=== PATIENT | male | born 1985 | race African-American/Black ===

== ENCOUNTER 2016-03-16 13:28 | Emergency (ER) | payer SELFPAY ==
[~2016-03-16] VITALS: Ht 198.1 cm; Wt 102.9 kg
[~2016-03-16 13:28] MED LIST: DOXY100C PO
[2016-03-16 13:35] VITALS: BP 135/89; PULSE 67; RESP 20; TEMP 98.8; O2SAT 99
--- NOTE | 2016-03-16 14:00 | RADHPO ---
EXAM DATE/TIME: 03/16/2016 13:50 [place] COMPARISON: No previous studies available for comparison. INDICATIONS : Right hand pain for three days. Patient states he was punching a punching bag. Pain at third MCPJ. MEDICAL HISTORY : None. SURGICAL HISTORY : None. ENCOUNTER: Initial ACUITY: 3 days PAIN SCORE: 6/10 LOCATION: Right hand. FINDINGS: Two view examination of the right hand demonstrates no soft tissue swelling, dislocation, or fracture . The joint spaces are maintained. Bony mineralization is normal. CONCLUSION: Unremarkable limited examination of the right hand. Marvel Egan MD on March 16, 2016 at 13:58 Board Certified Radiologist. This report was verified electronically.
--- NOTE | 2016-03-16 14:04 | PD ---
HPI Chief Complaint: Musculoskeletal Complaint Time Seen by Provider: 13:53 Travel History International Travel<30 days: No Contact w/Intl Traveler<30days: No Traveled to known affect area: No History of Present Illness HPI 30 year-old male presents to the emergency room for evaluation of right third metacarpal pain for the past 2 days. Patient states it started after punching a hard punching bag. States he was using wraps and gloves. Patient reports pain only occurs when he applies pressure or punches. There is no pain at rest or with palpation. Denies paresthesias, edema, or ecchymosis. He has been taking ibuprofen and applying ice without relief in symptoms. PFSH Past Medical History Asthma: Yes ( A CHILD) Diminished Hearing: No Respiratory: Yes (asthma) Influenza Vaccination: No Past Surgical History Surgical History: No Previous Surgery Social History Alcohol Use: Yes (SOCIAL) Tobacco Use: No Substance Use: Yes (MARIJUANA) Allergies-Medications (Allergen,Severity, Reaction): Coded Allergies: No Known Allergies (Unverified , 03/16/16) Reported Meds & Prescriptions Reported Meds & Active Scripts Active No Active Prescriptions or Reported Medications Review of Systems Except as stated in HPI: all other systems reviewed are Neg Physical Exam Narrative GENERAL: Well-nourished, well-developed male in no acute distress. Afebrile. Ambulatory. SKIN: Warm and dry. No erythema or ecchymosis. HEAD: Normocephalic. EYES: No scleral icterus. No injection or drainage. NECK: Supple, trachea midline. No JVD or lymphadenopathy. EXTREMITY: Right hand essentially nontender to palpation. Full range of motion in all joints. No joint swelling/injury. Less than 2 second capillary refill distally. Distal sensation intact. Data Data Last Documented VS Vital Signs Date Time Temp Pulse Resp B/P Pulse Ox O2 Delivery O2 Flow Rate FiO2 03/16/16 13:35 98.8 67 20 135/89 99 Orders Hand, Limited (2vws) (03/16/16 ) [facility] Medical Decision Making Medical Screen Exam Complete: Yes Emergency Medical Condition: Yes Medical Record Reviewed: Yes Differential Diagnosis Fracture versus dislocation versus contusion Narrative Course 30-year-old male presents to the emergency room for evaluation of right third metacarpal pain after punching a punching bag 2 days ago. Patient reports pain is worsened with any pressure or punching. Physical exam is reassuring. Right hand essentially nontender to palpation. Full range of motion in all joints. No joint swelling/injury. Less than 2 second capillary refill distally. Distal sensation intact. X-ray is negative. Likely contusion. Patient discharged with orthopedic instructions and told to follow up with a primary care physician or return to the emergency room for worsening symptoms. He understands and agrees to plan. Diagnosis Primary Impression: Contusion of right hand Qualified Code: S60.221A - Contusion of right hand, initial encounter Referrals: Primary Care Physician Patient Instructions: Contusion in Adults (ED), General Instructions Additional Instructions: Rest and drink plenty of fluids. Take ibuprofen with food as directed, as needed for pain. Apply ice to the affected area for 20 minutes at a time, as needed for pain and swelling. Follow-up with a primary care physician. Return to the emergency room for worsening symptoms. Med/Other Pt SpecificInfo: Prescription(s) given Scripts No Active Prescriptions or Reported Meds Disposition: 01 DISCHARGE HOME Condition: Stable Alice Blood Mar 16, 2016 14:04
== END 2016-03-16 14:18 | disposition home or self-care (01) ==
LOC: PHEFT 13:28
DX: S60.221A Contusion of right hand, initial encounter (principal); W21.89XA Striking against or struck by other sports equipment, initial encounter; Y93.59 Activity, other involving other sports and athletics played individually; Y92.9 Unspecified place or not applicable; Y99.8 Other external cause status
CPT/HCPCS: 73120; 99283

== ENCOUNTER 2016-03-21 02:26 | Emergency (ER) | payer SELFPAY ==
[~2016-03-21] VITALS: Ht 198.1 cm; Wt 103.4 kg
[2016-03-21 02:29] VITALS: BP 131/90; PULSE 89; RESP 20; TEMP 98.9; O2SAT 99
--- NOTE | 2016-03-21 03:09 | PD ---
HPI Chief Complaint: Skin Problem Time Seen by Provider: 03:05 Travel History International Travel<30 days: No Contact w/Intl Traveler<30days: No Traveled to known affect area: No History of Present Illness HPI 30-year-old male presents to the emergency department with a black dot noted on his left fifth toe. Patient's concerned this is cancer. Patient states it's been present for approximately one week. Patient denies recalling any injury. Patient denies any pain. Patient reports he is otherwise in good health. PFSH Past Medical History Narrative Medical Asthma no tobacco use nursing notes reviewed Asthma: Yes ( A CHILD) Diminished Hearing: No Respiratory: Yes (asthma) Tetanus Vaccination: < 5 Years Influenza Vaccination: No Past Surgical History Surgical History: No Previous Surgery Social History Alcohol Use: Yes (SOCIAL) Tobacco Use: No Substance Use: Yes (MARIJUANA) Allergies-Medications (Allergen,Severity, Reaction): Coded Allergies: No Known Allergies (Unverified , 03/16/16) Reported Meds & Prescriptions Reported Meds & Active Scripts Active No Active Prescriptions or Reported Medications Review of Systems General / Constitutional: No: Fever Musculoskeletal: No: Myalgias, Arthralgias Skin: No Rash Hematologic/Lymphatic: No: Lymph Node Enlargement Physical Exam Narrative Well-developed well-nourished male in no acute distress no respiratory distress Attention extremities left fifth toe small subcentimeter area vesicle with oxidized blood nontender digit is otherwise intact exam with brisk capillary refill normal range of motion and nontender without deformity Data Data Last Documented VS Vital Signs Date Time Temp Pulse Resp B/P Pulse Ox O2 Delivery O2 Flow Rate FiO2 03/21/16 02:29 98.9 89 20 131/90 99 MDM Medical Decision Making Medical Screen Exam Complete: Yes Emergency Medical Condition: Yes Medical Record Reviewed: Yes Differential Diagnosis Contusion blood blister eschar unlikely melanoma or cancer Narrative Course Patient is stable for outpatient management and follow-up with his primary care provider as needed should very remain for longer than an additional week should follow-up with dermatology patient is aware of recommendations and stable for outpatient management. Diagnosis Primary Impression: Blood blister Referrals: Primary Care Physician as needed Patient Instructions: General Instructions Additional Instructions: Keep site moisturized with lotion Follow-up with primary care provider Return to the emergency department for any concerns Follow-up with flex[employer] operator as needed Scripts No Active Prescriptions or Reported Meds Disposition: DISCHARGE HOME Condition: Stable Janeth Ballard MD Mar 21, 2016 03:09
== END 2016-03-21 03:18 | disposition home or self-care (01) ==
LOC: PHED 02:26
DX: S90.425A Blister (nonthermal), left lesser toe(s), initial encounter (principal); X58.XXXA Exposure to other specified factors, initial encounter; Y93.9 Activity, unspecified; Y92.9 Unspecified place or not applicable
CPT/HCPCS: 99283

== ENCOUNTER 2016-08-06 16:59 | Emergency (ER) | payer SELFPAY ==
[~2016-08-06] VITALS: Ht 198.1 cm; Wt 99.5 kg
[2016-08-06 17:03] VITALS: BP 128/79; PULSE 76; RESP 16; TEMP 99.4; O2SAT 99
--- NOTE | 2016-08-06 17:18 | PD ---
HPI Chief Complaint: Complaint Time Seen by Provider: 17:13 Travel History International Travel<30 days: No Contact w/Intl Traveler<30days: No Traveled to known affect area: No History of Present Illness HPI 31-year-old male presents to the emergency room requesting treatment for "the clap." Patient states symptoms of dysuria and white penile discharge started today. He had unprotected sex with one female yesterday morning. Denies urgency, frequency, flank pain, fever, chills, nausea, vomiting, testicular pain , and penile pain. Patient denies chronic medical conditions or daily medications. History Social History Alcohol Use: Yes (SOCIAL) Tobacco Use: No Allergies-Medications (Allergen,Severity, Reaction): Coded Allergies: No Known Allergies (Unverified , 08/06/16) Reported Meds & Prescriptions Reported Meds & Active Scripts Active No Active Prescriptions or Reported Medications Review of Systems Except as stated in HPI: all other systems reviewed are Neg Physical Exam Narrative GENERAL: Well-nourished, well-developed male in no acute distress. Afebrile. Ambulatory. SKIN: Focused skin assessment warm/dry. HEAD: Normocephalic. EYES: No scleral icterus. No injection or drainage. NECK: Supple, trachea midline. No JVD or lymphadenopathy. CARDIOVASCULAR: Regular rate and rhythm without murmurs, gallops, or rubs. RESPIRATORY: Breath sounds equal bilaterally. No accessory muscle use. Data Data Last Documented VS Vital Signs Date Time Temp Pulse Resp B/P Pulse Ox O2 Delivery O2 Flow Rate FiO2 08/06/16 17:03 99.4 76 16 128/79 99 MDM Medical Screen Exam Complete: Yes Emergency Medical Condition: No Differential Diagnosis STD Narrative Course 31-year-old male presents to the emergency room requesting treatment for possible STD. Patient had unprotected sex with one female yesterday morning. He developed dysuria with associated white discharge today. Denies significant signs or symptoms of infection. Patient was informed that the emergency room only tests for gonorrhea and chlamydia and that he should follow up with the health Department for further testing. No urgent or emergent medical conditions at this time. A medical screening exam was performed: At the time of evaluation the presenting medical condition was determined not to be of an emergent nature. The patient was given the option of receiving additional care, but declined. Patient was given options for additional community resources from which to obtain care. The Patient Has Been advised to seek medical attention for their presenting complaint. The patient has been advised to return to the ER at any time if an emergent condition develops. Primary Impression: Encounter for medical screening examination Scripts No Active Prescriptions or Reported Meds Disposition: 01 DISCHARGE HOME Condition: Stable Alice Blood Aug 06, 2016 17:17
== END 2016-08-06 17:16 | disposition left against medical advice (07) ==
LOC: PHEFT 16:59
DX: R30.0 Dysuria (principal)
CPT/HCPCS: 99281

== ENCOUNTER 2016-08-10 19:05 | Emergency (ER) | payer SELFPAY ==
[~2016-08-10] VITALS: Ht 198.1 cm; Wt 100.4 kg
[2016-08-10 19:08] VITALS: BP 141/78; PULSE 81; RESP 18; TEMP 98.2; O2SAT 97
--- NOTE | 2016-08-10 19:41 | PD ---
HPI Chief Complaint: Complaint Time Seen by Provider: 19:34 Travel History International Travel<30 days: No Contact w/Intl Traveler<30days: No Traveled to known affect area: No History of Present Illness HPI 31-year-old male presents to the emergency department complaining of 3 days of penile discharge. Patient noted streaks of blood today. Patient decided to be evaluated. Patient has had STD in the past and was treated health Department. Patient's been seen here before for STD. Patient denies fever chills nausea vomiting. Pubic pressure does note some burning with urination. No testicular pain testicular swelling or scrotal pain or edema. Patient is otherwise good health remote history of asthma. Patient denies diabetes. Patient admits to being sexually active without condom use. Yesterday took a dose of left over antibiotic from last visit for same complaint. PFSH Past Medical History Narrative Medical Asthma, STD; no surgeries; no tobacco use rare alcohol use no substance use; nursing notes reviewed Medical History: Denies Significant Hx Asthma: Yes ( A CHILD) Diminished Hearing: No Respiratory: Yes (asthma as child) Tetanus Vaccination: < 5 Years Influenza Vaccination: No Past Surgical History Surgical History: No Previous Surgery Social History Alcohol Use: Yes (SOCIAL) Tobacco Use: No Substance Use: No Allergies-Medications (Allergen,Severity, Reaction): Coded Allergies: No Known Allergies (Unverified , 08/10/16) Reported Meds & Prescriptions Reported Meds & Active Scripts Active No Active Prescriptions or Reported Medications Review of Systems Except as stated in HPI: all other systems reviewed are Neg General / Constitutional: No: Fever, Chills HENT: No: Congestion Cardiovascular: No: Chest Pain or Discomfort Respiratory: No: Shortness of Breath Genitourinary: Positive: Dysuria Musculoskeletal: No: Pain Skin: No Rash Neurologic: No: Weakness Endocrine: No: Polyuria Hematologic/Lymphatic: No: Lymph Node Enlargement Physical Exam Narrative GENERAL: Well-developed well-nourished male in no acute distress no respiratory distress. SKIN: Warm and dry. HEAD: Normocephalic. EYES: No scleral icterus. No injection or drainage. NECK: Supple, trachea midline. No JVD or lymphadenopathy. CARDIOVASCULAR: Regular rate and rhythm without murmurs, gallops, or rubs. RESPIRATORY: Breath sounds equal bilaterally. No accessory muscle use. GASTROINTESTINAL: Abdomen soft, non-tender, nondistended. : Circumcised male , bilaterally descended testicles, no edema or mass or tenderness to palpation. Positive cremasteric reflex noted. MUSCULOSKELETAL: No cyanosis, or edema. BACK: Nontender without obvious deformity. No CVA tenderness. Data Data Last Documented VS Vital Signs Date Time Temp Pulse Resp B/P Pulse Ox O2 Delivery O2 Flow Rate FiO2 08/10/16 19:08 98.2 81 18 141/78 97 Orders Gc And Chlamydia Pcr (08/10/16 19:35) Urinalysis - C+S If Indicated (08/10/16 19:35) Ceftriaxone Inj (Rocephin Inj) (08/10/16 19:45) Lidocaine 1% Inj (50 Ml) (Xylocaine 1% I (08/10/16 19:45) Azithromycin (Zithromax) (08/10/16 19:45) Urine Culture (08/10/16 20:51) Labs Laboratory Tests Test 08/10/16 20:51 Urine Color YELLOW Urine Turbidity SLIGHT Urine pH 6.0 Urine Specific [place] 1.013 Urine Protein NEG mg/dL Urine Glucose (UA) NEG mg/dL Urine Ketones NEG mg/dL Urine Occult Blood TRACE Urine Nitrite NEG Urine Bilirubin NEG Urine Leukocyte Esterase TRACE Urine RBC 0-3 /hpf Urine WBC 9-14 /hpf Urine Squamous Epithelial 0-5 /hpf Cells Urine Hyaline Casts 0-2 /lpf Urine Mucus FEW /lpf Microscopic Urinalysis Comment CULTURE INDICATED MDM Medical Decision Making Medical Screen Exam Complete: Yes Emergency Medical Condition: Yes Medical Record Reviewed: Yes Interpretation(s) UA: blood, no rbc's; positive wbc's, no bacteria; cx indicated Differential Diagnosis Urethritis-nonspecific, UTI, epididymitis, STD Narrative Course Patient presents with penile discharge after unprotected sexual intercourse exam and history consistent with urethritis patient administered Rocephin injection along with 1 g of azithromycin. Patient is encouraged to follow-up with health Department. She does remain sexually inactive until laboratory results are available. Patient encouraged to use condom use with subsequent sexual activity. Urinalysis positive for blood without red blood cells and positive for white blood cells and bacteria cultures indicated. Patient has been treated with Rocephin and azithromycin is stable for outpatient management. Diagnosis Primary Impression: Nonspecific urethritis Referrals: Primary Care Physician as needed [facility] Dept. call for appointment Patient Instructions: General Instructions Additional Instructions: Follow-up with [facility] Remain sexually inactive until all lab results available Use condom with sexual activity Return to the emergency department for any concerns Scripts No Active Prescriptions or Reported Meds Disposition: 01 DISCHARGE HOME Condition: Janeth Mei MD Aug 10, 2016 19:41
[2016-08-10] MEDS ORDERED: cefTRIAXone 250 MG VIAL IM ONE (19:45)
[2016-08-10] MEDS ORDERED: AZITHROMYCIN 250 MG TAB PO ONE (19:45)
[2016-08-10] MEDS ORDERED: LIDOCAINE HCL 1% 50 ML VIAL IM ONE (19:45)
[2016-08-10 21:03] LABS: BLOOD, URINE TRACE (NEG); GLUCOSE,URINE NEG (NEG); KETONE, URINE NEG (NEG); NITRITE,URINE NEG (NEG)
[2016-08-10 21:10] LABS: URINE COLOR YELLOW (YELLW/STRAW)
[2016-08-10 21:11] LABS: MUCUS URINE FEW /lpf (OCC)
[2016-08-10 21:12] LABS: RBC, URINE 0-3 /hpf (0-3); SQUAMOUS EPITHELIAL CELL URINE 0-5 /hpf (0-5)
[2016-08-10 21:13] LABS: COMMENT (UR) CULTURE INDICATED; CULTURE IF INDICATED CULTURE INDICATED; HYALINE CAST, URINE 0-2 /lpf (RARE)
[2016-08-11 01:43] LABS: CHLAMYDIA PCR NOT DETECTED (NOT DETECT); NEISSERIA PCR NOT DETECTED (NOT DETECT)
== END 2016-08-10 21:34 | disposition home or self-care (01) ==
LOC: PHED 19:05
DX: N34.2 Other urethritis (principal)
CPT/HCPCS: 81001; 87086; 87491; 87591; 96372; 99284; J0696

== ENCOUNTER 2016-10-21 03:45 | Emergency (ER) | payer SELFPAY ==
[~2016-10-21] VITALS: Ht 198.1 cm; Wt 101.8 kg
[2016-10-21 03:52] VITALS: BP 140/65; PULSE 70; RESP 16; TEMP 98.5; O2SAT 99
[2016-10-22] MEDS ORDERED: VITA150T PO (00:01)
[2016-10-22] MEDS ORDERED: VITA500T83 PO (00:01)
[2016-10-22] MEDS ORDERED: VITA100036 PO (00:01)
== END 2016-10-21 04:01 | disposition left against medical advice (07) ==
LOC: PHED 03:45
DX: Z03.89 Encounter for observation for other suspected diseases and conditions ruled out (principal)
CPT/HCPCS: 99281

== ENCOUNTER 2016-10-21 23:34 | Emergency (ER) | payer SELFPAY ==
[~2016-10-21] VITALS: Ht 198.1 cm; Wt 103.0 kg
[2016-10-21 23:41] VITALS: BP 142/63; PULSE 66; RESP 14; TEMP 97.9; O2SAT 98
[2016-10-22] MEDS ORDERED: VITA500T83 PO (00:01)
[2016-10-22] MEDS ORDERED: VITA100036 PO (00:01)
[2016-10-22] MEDS ORDERED: VITA150T PO (00:01)
--- NOTE | 2016-10-22 01:32 | PD ---
HPI Chief Complaint: Complaint Time Seen by Provider: 01:25 Travel History International Travel<30 days: No Contact w/Intl Traveler<30days: No Traveled to known affect area: No History of Present Illness HPI The patient is a 31-year-old male that noticed a yellow/white discharge from his penis for the past 24 hours. He also noticed burning on urination. The patient is sexually active without protection. He had the same problem 4-6 weeks ago and has been sexually active without protection many times since. He denies any joint pain, skin rash, fever, testicular pain. PFSH Past Medical History Asthma: Yes ( A CHILD) Diminished Hearing: No Respiratory: Yes (asthma as child) Immunizations Current: Yes Influenza Vaccination: No Past Surgical History Surgical History: No Previous Surgery Social History Alcohol Use: No Tobacco Use: No (QUIT 2015) Substance Use: No Allergies-Medications (Allergen,Severity, Reaction): Coded Allergies: No Known Allergies (Unverified , 08/10/16) Reported Meds & Prescriptions Reported Meds & Active Scripts Active Reported Super B Complex (Vitamin B Complex Vit C No.4) 150 Mg Tablet 1 Tab PO DAILY Vitamin D3 (Cholecalciferol) 1,000 Unit Cap 1,000 Units PO DAILY Vitamin C ER (Ascorbic Acid) 500 Mg Evgeny 500 Mg PO DAILY Review of Systems Except as stated in HPI: all other systems reviewed are Neg Physical Exam Narrative GENERAL: Well-nourished, well-developed patient in no apparent distress except for his penile discharge. His vital signs are normal. SKIN: Focused skin assessment warm/dry. No skin rashes noted. HEAD: Normocephalic. EYES: No scleral icterus. No injection or drainage. NECK: Supple, trachea midline. No JVD or lymphadenopathy. There is no meningismus present. CARDIOVASCULAR: Regular rate and rhythm without murmurs, gallops, or rubs. RESPIRATORY: Breath sounds equal bilaterally. No accessory muscle use. GASTROINTESTINAL: Abdomen soft, non-tender, nondistended. MUSCULOSKELETAL: No cyanosis, or edema. No joint pain or swelling is noted. BACK: Nontender without obvious deformity. No CVA tenderness. GENITOURINARY: Circumcised. Testes descended bilaterally without evidence of rotation. No lesions or erythema. There is a copious, off-white urethral discharge. Data Data Last Documented VS Vital Signs Date Time Temp Pulse Resp B/P (MAP) Pulse Ox O2 Delivery O2 Flow Rate FiO2 10/21/16 23:41 97.9 66 14 142/63 (89) 98 Orders Orders Azithromycin Powd Pack (Zithromax Powd P (10/22/16 01:45) Ceftriaxone Inj (Rocephin Inj) (10/22/16 01:45) Sodium Chloride 0.9% Flush (Ns Flush) (10/22/16 01:45) Lidocaine 1% Inj (50 Ml) (Xylocaine 1% I (10/22/16 01:45) Azithromycin (Zithromax) (10/22/16 02:00) MDM Medical Decision Making Medical Screen Exam Complete: Yes Emergency Medical Condition: Yes Medical Record Reviewed: Yes Differential Diagnosis Urinary tract infection, gonorrhea, nonspecific urethritis Narrative Course The patient has an STD likely gonorrhea versus nonspecific urethritis. He will be treated with Rocephin and Zithromax. He will get 1 g orally of Zithromax. The patient could not take the powder but will be given Zithromax tablets. Diagnosis Primary Impression: STD (male) Additional Impression: Nonspecific urethritis Additional Instructions: Use protection when you have sex. If you have sex with an infected person you' ll get this disease again. This is a sexually transmitted disease. Disposition: 01 DISCHARGE HOME Condition: Stable Ace Reyes MD Oct 22, 2016 01:32
[2016-10-22] MEDS ORDERED: AZITHROMYCIN PWD FOR SUSP 1 GM PACKET PO ONE (01:45)
[2016-10-22] MEDS ORDERED: SODIUM CHLORIDE 0.9% FLUSH 10 ML FLUSH IVF PRN (01:45)
[2016-10-22] MEDS ORDERED: LIDOCAINE HCL 1% 50 ML VIAL XX ONE (01:45)
[2016-10-22] MEDS ORDERED: AZITHROMYCIN 600 MG TAB PO ONE (02:00)
[2016-10-22 02:05] VITALS: BP 124/76; PULSE 57; RESP 14; O2SAT 100
== END 2016-10-22 02:29 | disposition home or self-care (01) ==
LOC: PHED 23:34
DX: N34.1 Nonspecific urethritis (principal)
CPT/HCPCS: 96372; 99284; J0696

== ENCOUNTER 2016-12-20 05:49 | Emergency (ER) | payer SELFPAY ==
[~2016-12-20] VITALS: Ht 198.1 cm; Wt 101.7 kg
[~2016-12-20 05:49] MED LIST changes: -DOXY100C PO; +VITA100036 PO; +VITA150T PO; +VITA500T83 PO
[2016-12-20 05:53] VITALS: BP 141/79; PULSE 62; RESP 16; TEMP 97.2; O2SAT 99
--- NOTE | 2016-12-20 07:22 | PD ---
HPI Chief Complaint: Complaint Time Seen by Provider: 07:14 Travel History International Travel<30 days: No Contact w/Intl Traveler<30days: No Traveled to known affect area: No History of Present Illness HPI The patient is a 31-year-old [place] male who presents to the emergency department for penile discharge of one days duration. The patient is sexually active with women, has no known exposures. The patient does have a history of similar symptoms in the past secondary to chlamydia. Patient states the penile discharges yellow white, slight burning with urination, but denies any swelling of the penile shaft or scrotum. He denies any associated fever, chills, sweats , nausea, vomiting, abdominal pain, myalgias, or arthralgias. Symptoms are mild to moderate, possibly exacerbated by sexual activity, and alleviated in the past with antibiotics. PFSH Past Medical History Asthma: Yes ( A CHILD) Diminished Hearing: No Respiratory: Yes (asthma as child) Immunizations Current: Yes Tetanus Vaccination: < 5 Years Influenza Vaccination: No Social History Alcohol Use: No Tobacco Use: No (QUIT 2015) Substance Use: No Allergies-Medications (Allergen,Severity, Reaction): Coded Allergies: No Known Allergies (Unverified , 12/20/16) Reported Meds & Prescriptions Reported Meds & Active Scripts Active Reported Super B Complex (Vitamin B Complex Vit C No.4) 150 Mg Tablet 1 Tab PO DAILY Vitamin D3 (Cholecalciferol) 1,000 Unit Cap 1,000 Units PO DAILY Vitamin C ER (Ascorbic Acid) 500 Mg Evgeny 500 Mg PO DAILY Review of Systems General / Constitutional: No: Fever Gastrointestinal: No: Nausea, Vomiting, Abdominal Pain Genitourinary: Positive: Dysuria, Discharge, No: Urgency, Frequency Musculoskeletal: No: Myalgias, Arthralgias Skin: No Rash Physical Exam Narrative GENERAL: Awake, alert, pleasant 31-year-old male who appears his stated age and is in no acute respiratory distress. SKIN: Focused skin assessment warm/dry. HEAD: Atraumatic. Normocephalic. GASTROINTESTINAL: Abdomen soft, non-tender, nondistended. Back: No CVA tenderness. Genitourinary: Circumcised phallus, there is visible yellow drainage at the meatus. MUSCULOSKELETAL: No obvious deformities. No clubbing. No cyanosis. No edema. NEUROLOGICAL: Awake and alert. No obvious cranial nerve deficits. Motor grossly within normal limits. Normal speech. PSYCHIATRIC: Appropriate mood and affect; insight and judgment normal. Data Data Last Documented VS Vital Signs Date Time Temp Pulse Resp B/P (MAP) Pulse Ox O2 Delivery O2 Flow Rate FiO2 12/20/16 06:04 18 12/20/16 05:53 97.2 62 141/79 (99) 99 Orders Orders Azithromycin (Zithromax) (12/20/16 07:30) Ceftriaxone Inj (Rocephin Inj) (12/20/16 07:30) Lidocaine 1% Inj (50 Ml) (Xylocaine 1% I (12/20/16 07:30) MDM Medical Decision Making Medical Screen Exam Complete: Yes Emergency Medical Condition: Yes Medical Record Reviewed: Yes Differential Diagnosis Differential diagnosis includes gonorrhea, chlamydia, urethritis, UTI, STI. Narrative Course The patient has a history of similar symptoms in the past secondary to chlamydia. On physical examination the patient has visible discharge from the meatus, therefore, will be treated for urethritis with Rocephin and Zithromax. He is advised to follow up at the [facility] for further testing for HIV and syphilis. Diagnosis Primary Impression: Nonspecific urethritis Patient Instructions: General Instructions Additional Instructions: Follow-up with the [facility] Department for further testing for syphilis and HIV. Have a discussion with her sexual partner. Wear condoms. Return if symptoms worsen or progress. Med/Other Pt SpecificInfo: No Change to Meds Disposition: 01 DISCHARGE HOME Condition: Stable Cheo Arellano MD Dec 20, 2016 07:22
[2016-12-20] MEDS ORDERED: LIDOCAINE HCL 1% 50 ML VIAL XX ONE (07:30)
[2016-12-20] MEDS ORDERED: cefTRIAXone 250 MG VIAL IM ONE (07:30)
[2016-12-20] MEDS ORDERED: AZITHROMYCIN 250 MG TAB PO ONE (07:30)
== END 2016-12-20 08:30 | disposition home or self-care (01) ==
LOC: PHED 05:49
DX: N34.1 Nonspecific urethritis (principal)
CPT/HCPCS: 96372; 99284; J0696

== ENCOUNTER 2017-01-28 00:31 | Emergency (ER) | payer SELFPAY ==
[~2017-01-28] VITALS: Ht 198.1 cm; Wt 102.3 kg
[~2017-01-28 00:31] MED LIST changes: +CHOL10008 PO; -VITA100036 PO
[2017-01-28 00:37] VITALS: BP 135/81; PULSE 77; RESP 12; TEMP 98.3; O2SAT 98
[2017-01-28] MEDS ORDERED: MULT1TAB PO (00:46)
--- NOTE | 2017-01-28 00:48 | PD ---
HPI Chief Complaint: skin lesion Time Seen by Provider: 00:40 Travel History International Travel<30 days: No Contact w/Intl Traveler<30days: No Traveled to known affect area: No History of Present Illness HPI the patient is a 31-year-old [place] male who presents to the emergency department for a skin lesion on the volar aspect of the third digit, right hand , over the distal phalanx. The lesion has been in place for approximately 3 weeks, slightly tender when pressed against objects, but otherwise asymptomatic. The patient denies any history of similar lesions on the hand or history of recurrent warts. He denies any known trauma to the affected area. He denies any surrounding redness, erythema, or drainage. Symptoms are mild, slightly exacerbated after palpation, and there are no current alleviating factors. PFSH Past Medical History Asthma: Yes ( A CHILD) Diminished Hearing: No Respiratory: Yes (asthma as child) Immunizations Current: Yes Social History Alcohol Use: No Tobacco Use: No (QUIT 2015) Substance Use: No Allergies-Medications (Allergen,Severity, Reaction): Coded Allergies: No Known Allergies (Unverified Adverse Reaction, Unknown, 01/28/17) Reported Meds & Prescriptions Reported Meds & Active Scripts Active Reported Super B Complex (Vitamin B Complex Vit C No.4) 150 Mg Tablet 1 Tab PO DAILY Vitamin D3 (Cholecalciferol) 1,000 Unit Cap 1,000 Units PO DAILY Vitamin C ER (Ascorbic Acid) 500 Mg Evgeny 500 Mg PO DAILY Review of Systems General / Constitutional: No: Fever Musculoskeletal: No: Limited ROM, Edema Skin: Positive Other (as noted in history present illness) Neurologic: No: Paresthesia, Sensory Disturbance Physical Exam Narrative GENERAL: Awake, alert, pleasant 31-year-old male who appears his stated age and is in no acute respiratory distress. SKIN: Focused skin assessment warm/dry. Patient is a circular, slightly raised lesion over the forehead aspect of the distal phallus, third digit, right hand. It has worked-like appearance, there is no surrounding erythema underlying fluctuance. HEAD: Atraumatic. Normocephalic. EYES: Pupils equal and round. No scleral icterus. No injection or drainage. ENT: No nasal bleeding or discharge. Mucous membranes pink and moist. NECK: Trachea midline. No JVD. MUSCULOSKELETAL: No obvious deformities. No clubbing. No cyanosis. No edema. The patient is able fully flex the MCP, PIP, DIP of the third digit right hand. NEUROLOGICAL: Awake and alert. No obvious cranial nerve deficits. Motor grossly within normal limits. Normal speech. PSYCHIATRIC: Appropriate mood and affect; insight and judgment normal. Data Data Last Documented VS Vital Signs Date Time Temp Pulse Resp B/P (MAP) Pulse Ox O2 Delivery O2 Flow Rate FiO2 01/28/17 00:37 98.3 77 12 135/81 (99) 98 Orders Orders Ed Discharge Order (01/28/17 00:44) MDM Medical Decision Making Medical Screen Exam Complete: Yes Emergency Medical Condition: Yes Medical Record Reviewed: Yes Differential Diagnosis Differential diagnosis includes wart, HPV, abscess, felon, paronychia. Narrative Course The patient's physical examination is consistent with a wart. The patient is advised to try [id number] products for warts, if it is persistent, he is advised to follow-up with a plastic surgeon and/or environmental planning engineer for possible medical therapy versus removal. The patient stable for outpatient follow-up. Diagnosis Primary Impression: Wart Qualified Codes: B07.9 - Viral wart, unspecified Additional Instructions: Try [id number] products for wart removal as needed. If symptoms persist or are bothersome follow-up with a environmental planning engineer and/or plastic surgeon for removal. Disposition: 01 DISCHARGE HOME Condition: Stable Cheo Arellano MD Jan 28, 2017 00:48
== END 2017-01-28 01:02 | disposition home or self-care (01) ==
LOC: PHED 00:31
DX: B07.9 Viral wart, unspecified (principal)
CPT/HCPCS: 99282

== ENCOUNTER 2017-05-23 15:57 | Emergency (ER) | payer SELFPAY ==
[~2017-05-23] VITALS: Ht 198.1 cm; Wt 106.1 kg
[~2017-05-23 15:57] MED LIST changes: +MULT1TAB PO
[2017-05-23 16:18] VITALS: BP 162/91; PULSE 86; RESP 16; TEMP 98.9; O2SAT 98
[2017-05-23] MEDS ORDERED: AZITHROMYCIN PWD FOR SUSP 1 GM PACKET PO ONE (18:15)
[2017-05-23] MEDS ORDERED: cefTRIAXone 250 MG VIAL IM ONE (18:15)
[2017-05-23] MEDS ORDERED: metroNIDAZOLE 500 MG TAB PO ONE (18:15)
[2017-05-23] MEDS ORDERED: LIDOCAINE HCL 1% 50 ML VIAL XX ONE (18:15)
[2017-05-23] MEDS ORDERED: ACYC400T PO (18:20)
--- NOTE | 2017-05-23 18:20 | PD ---
HPI Chief Complaint: Lump, Cyst, Hernia Time Seen by Provider: 18:13 Travel History International Travel<30 days: No Contact w/Intl Traveler<30days: No Traveled to known affect area: No History of Present Illness HPI 31-year-old male patient presents to the ER today for several days history of right groin pain, feels like there is some tenderness and lump to the area, has noticed also over the last few days that he has some blisters to the base of his penis. He admits that he had been sexually active a few weeks ago with a new partner, although he states he used a condom. He denies burning on urination or any other issues. Modifying Factors: None Associated Signs & Symptoms: Right groin pain and lump, blisters on the penis Risk Factors: Sexually active with new partner PFSH Past Medical History Asthma: Yes ( A CHILD) Diminished Hearing: No Respiratory: Yes (asthma as child) Immunizations Current: Yes Influenza Vaccination: No Past Surgical History Surgical History: No Previous Surgery Social History Alcohol Use: No Tobacco Use: No Substance Use: No (quit smoking "weed" in 2016) Allergies-Medications (Allergen,Severity, Reaction): Coded Allergies: No Known Allergies (Unverified Adverse Reaction, Unknown, 05/23/17) Reported Meds & Prescriptions Reported Meds & Active Scripts Active Review of Systems Except as stated in HPI: all other systems reviewed are Neg Physical Exam Narrative GENERAL: Well-developed young -[place] male patient currently in no acute distress. Awake and oriented 3. SKIN: Focused skin assessment warm/dry. HEAD: Atraumatic. Normocephalic. EYES: Pupils equal and round. No scleral icterus. No injection or drainage. ENT: No nasal bleeding or discharge. Mucous membranes pink and moist. NECK: Trachea midline. No JVD. CARDIOVASCULAR: Regular rate and rhythm. No murmur appreciated. RESPIRATORY: No accessory muscle use. Clear to auscultation. Breath sounds equal bilaterally. GASTROINTESTINAL: Abdomen soft, non-tender, nondistended. Hepatic and splenic margins not palpable. GENITOURINARY: Circumcised. Testes descended bilaterally without evidence of rotation. There is palpable lymphadenopathy in the right groin area without obvious hernial masses, there are several vesicles notable to the base of the penis as well as a clean base ulcer below that area. No urethral discharge. MUSCULOSKELETAL: No obvious deformities. No clubbing. No cyanosis. No edema. NEUROLOGICAL: Awake and alert. No obvious cranial nerve deficits. Motor grossly within normal limits. Normal speech. PSYCHIATRIC: Appropriate mood and affect; insight and judgment normal. Data Data Last Documented VS Vital Signs Date Time Temp Pulse Resp B/P (MAP) Pulse Ox O2 Delivery O2 Flow Rate FiO2 05/23/17 16:18 98.9 86 16 162/91 (114) 98 Orders Orders Gc And Chlamydia Pcr (05/23/17 18:13) Azithromycin Powd Pack (Zithromax Powd P (05/23/17 18:15) Ceftriaxone Inj (Rocephin Inj) (05/23/17 18:15) Metronidazole (Flagyl) (05/23/17 18:15) Lidocaine 1% Inj (50 Ml) (Xylocaine 1% I (05/23/17 18:15) Ed Discharge Order (05/23/17 18:14) [facility] Medical Decision Making Medical Screen Exam Complete: Yes Emergency Medical Condition: Yes Medical Record Reviewed: Yes Differential Diagnosis Cankers sores versus herpetic lesion versus folliculitis versus inguinal hernia versus inguinal lymphadenopathy versus LV G Narrative Course Considering his risk factors, patient is treated for possible STDs. He was also given treatment for herpes. Cultures have been obtained per. I do not palpate any obvious inguinal hernia at this time. My plan would be to release him with follow-up to primary care as needed. Return for any worsening in symptoms. The plan has been discussed with him and he states understanding. Diagnosis Primary Impression: Sore of penis Additional Impression: Inguinal lymphadenopathy Med/Other Pt SpecificInfo: Prescription(s) given Scripts Acyclovir (Acyclovir) 400 Mg Tab 400 MG PO TID for Mgmt Viral Infection for 7 Days, TAB 0 Refills Prov: Caty Henriquez MD 05/23/17 Disposition: 01 DISCHARGE HOME Condition: Stable Caty Henriquez MD May 23, 2017 18:20
[2017-05-23] MEDS ORDERED: LIDOCAINE HCL 1% PF 10 ML VIAL ONE (18:35)
[2017-05-23 19:37] VITALS: BP 147/72
== END 2017-05-23 19:39 | disposition home or self-care (01) ==
LOC: PHED 15:57
DX: L98.8 Other specified disorders of the skin and subcutaneous tissue (principal); R59.0 Localized enlarged lymph nodes; Z87.09 Personal history of other diseases of the respiratory system
CPT/HCPCS: 87491; 87591; 96372; 99284; J0696

== ENCOUNTER 2017-08-18 22:48 | Emergency (ER) | payer SELFPAY ==
[~2017-08-18] VITALS: Ht 198.1 cm; Wt 107.7 kg
[~2017-08-18 22:48] MED LIST changes: +ACYC400T PO; -CHOL10008 PO; -MULT1TAB PO; -VITA150T PO; -VITA500T83 PO
[2017-08-18 22:56] VITALS: BP 147/84; PULSE 69; RESP 18; TEMP 97.2; O2SAT 99
[2017-08-18] MEDS ORDERED: ACYC400T PO (23:47)
--- NOTE | 2017-08-18 23:48 | PD ---
HPI Chief Complaint: Skin Problem Time Seen by Provider: 23:44 Travel History International Travel<30 days: No Contact w/Intl Traveler<30days: No Traveled to known affect area: No History of Present Illness HPI 32-year-old male returns to the emergency department for recurrent vesicle to the penile shaft. Patient was seen for same in May but herpetic lesion specimen collection was not performed. Patient now has recurrence of same blister ulcer type lesion and presents again for reevaluation. No penile discharge. Patient also does shave in the area but no no pustules noted to the pannus or scrotum. No fever chills. Patient is not diabetic. Patient is sexually active. PFSH Past Medical History Narrative Medical Asthma; no tobacco use; nursing notes reviewed Asthma: Yes ( A CHILD) Diminished Hearing: No Respiratory: Yes (asthma as child) Immunizations Current: Yes Tetanus Vaccination: < 5 Years Influenza Vaccination: No Social History Alcohol Use: No Tobacco Use: No Substance Use: No (quit smoking "weed" in 2016) Allergies-Medications (Allergen,Severity, Reaction): Coded Allergies: No Known Allergies (Verified Adverse Reaction, Unknown, 08/18/17) Reported Meds & Prescriptions Reported Meds & Active Scripts Active Acyclovir 400 Mg Tab 400 Mg PO TID 7 Days Acyclovir 400 Mg Tab 400 Mg PO TID 7 Days Review of Systems Except as stated in HPI: all other systems reviewed are Neg General / Constitutional: No: Fever, Chills HENT: No: Congestion Cardiovascular: No: Chest Pain or Discomfort Respiratory: No: Shortness of Breath Gastrointestinal: No: Vomiting, Abdominal Pain Genitourinary: No: Dysuria, Discharge Musculoskeletal: No: Myalgias, Arthralgias Skin: Positive Rash Neurologic: No: Weakness, Dizziness Psychiatric: No: Anxiety, Depression Endocrine: No: Heat Intolerance, Cold Intolerance Hematologic/Lymphatic: No: Easy Bruising Physical Exam Narrative GENERAL: Well-developed well-nourished male no acute distress no respiratory distress SKIN: Warm and dry. HEAD: Normocephalic. EYES: No scleral icterus. No injection or drainage. NECK: Supple, trachea midline. No JVD or lymphadenopathy. CARDIOVASCULAR: Regular rate and rhythm without murmurs, gallops, or rubs. RESPIRATORY: Breath sounds equal bilaterally. No accessory muscle use. GASTROINTESTINAL: Abdomen soft, non-tender, nondistended. : Circumcised male without penile discharge bilaterally descended testicles small vesicles/ ulceration cluster to the lateral aspect of the penile shaft. MUSCULOSKELETAL: No cyanosis, or edema. BACK: Nontender without obvious deformity. No CVA tenderness. Data Data Last Documented VS Vital Signs Date Time Temp Pulse Resp B/P (MAP) Pulse Ox O2 Delivery O2 Flow Rate FiO2 08/18/17 22:56 97.2 69 18 147/84 (105) 99 Orders Orders Herpes Simplex Virus Culture (08/18/17 23:45) Ed Discharge Order (08/18/17 23:48) MDM Medical Decision Making Medical Screen Exam Complete: Yes Emergency Medical Condition: Yes Medical Record Reviewed: Yes Differential Diagnosis STI/STD, folliculitis, genital herpes Narrative Course Patient concern for recurrence of ulcerative like lesions to the penile shaft which was noted in May but review of medical records indicates that swab was not collected only tested for gonorrhea and chlamydia both of which were negative. She is concerned because of recurrence of symptoms. Patient requesting testing. Viral swab obtained and collected although minimal vesicle content collected. Patient given prescription for acyclovir encouraged to follow-up with the [facility] department for any ongoing symptoms and to remain sexually abstinent. Diagnosis Primary Impression: Penile lesion Referrals: [facility] Dept. call for appointment Patient Instructions: General Instructions Additional Instructions: Take medication as prescribed Follow-up with [facility] department Remain sexually abstinent over the next 7 days while waiting for testing results and while need follow-up through the [facility] Return the emergency department for any concerns or change in condition Med/Other Pt SpecificInfo: Prescription(s) given Scripts Acyclovir (Acyclovir) 400 Mg Tab 400 MG PO TID for Mgmt Viral Infection for 7 Days, TAB 0 Refills Prov: Janeth Ballard MD 08/18/17 Disposition: 01 DISCHARGE HOME Condition: Stable Janeth Ballard MD Aug 18, 2017 23:48
== END 2017-08-19 00:03 | disposition home or self-care (01) ==
LOC: PHED 22:48
DX: N50.9 Disorder of male genital organs, unspecified (principal); J45.909 Unspecified asthma, uncomplicated
CPT/HCPCS: 87255; 99283